=== PATIENT | male | born 1940 | race Caucasian/White ===

== ENCOUNTER 2017-02-01 02:40 | Inpatient (IN) | payer MEDICARE ==
[~2017-02-01] VITALS: Ht 193 cm; Wt 73.9 kg
--- NOTE | ~2017-02-01 | ECH ---
Transthoracic Echocardiography Report (TTE) Demographics Patient Name MERLE GUSTAFSON Date of Study 02/02/2017 Patient Number [id number] Visit Number [id number] Date of 1940 Room Number 423 Accession Number [id number] Gender Male Age 77 year(s) Referring Temo Curry MD Manager Of Administration Magalie Ledesma [facility] Physician Saud Alba Physician Interpreting Ashely Hoover MD Quality Assurance Clerk Physician Supervising Ordering Physician Beau Rizvi MD, MD/P Nurse Stress Manufacturing Sr Engineer Conclusions Summary Technically difficult exam to perform due to body habitus/respirations. Images obtained are adequate. The estimated left ventricular ejection fraction is 60-65%. Bubble study was done, there is no evidence for a PFO or ASD. Mild mitral regurgitation by color Doppler. Trivial tricuspid regurgitation by color Doppler. Trivial pulmonic valve regurgitation by color Doppler. The aortic root appears mildly dilated. The maximum diameter measures 3.88 cm at the sinus of valsalva. Procedure Type of Study TTE procedure:Echo Complete SF. Procedure Date Date: 02/02/2017 Start: 10:48 Technical Quality: Adequate visualization Indications:CVA. Contrast Medium: Bubble Study. Height: 76 inches Weight: 169 pounds BSA: 2.06 m Rhythm: NSR HR: 77 bpm BP: 148/80 mmHg M-Mode/2D Measurements LV Diastolic Dimension: 4.72 cm LV Systolic Dimension: 2.82 cm LV Septum Diastolic: 0.99 cm LV PW Diastolic: 0.97 cm AO Root Dimension: 3.3 cm Cardiac Output: 5.01 l/min LA Dimension: 3.46 cm Cardiac Index: 2.43 l/min*m RV Diastolic Dimension: 3.8 cm LA volume index: 19 ml/m LVOT: 1.94 cm LVOT VTI: 22.03 cm LV Stroke volume: 65.09 ml LV Stroke volume index: 31.6 ml/m Doppler Measurements AV Peak Velocity: 0.98 m/s MV Peak E-Wave: 1.05 m/s AV Peak Gradient: 3.84 mmHg MV Peak A-Wave: 0.75 m/s AV Mean Gradient: 2.08 mmHg MV E/A Ratio: 1.4 LVOT Peak Velocity: 1.15 m/s AV Area (Continuity):3.33 cm TR Velocity:1.91 m/s TR Gradient:14.54 mmHg Estimated PASP: 17.54 mmHg Estimated RAP:3 mmHg Estimated RVSP: 18 mmHg RA Area: 8.01 cm Findings Left Ventricle The left ventricle is normal in size . Diastolic assessment reveals normal relaxation. Right Ventricle Normal right ventricle structure and function. Left Atrium Normal left atrial size. Bubble study was done, there is no evidence for a PFO or ASD. Right Atrium Normal right atrial size. Mitral Valve Normal mitral valve structure and function. Mild mitral regurgitation by color Doppler. Aortic Valve The aortic valve is mildly sclerotic. Tricuspid Valve Trivial tricuspid regurgitation by color Doppler. Pulmonic Valve Trivial pulmonic valve regurgitation by color Doppler. Pericardial Effusion No evidence of pericardial effusion. Miscellaneous The aortic root appears mildly dilated. The maximum diameter measures 3.88 cm at the sinus of valsalva. Pleural Effusion No evidence of pleural effusion. Signature
--- NOTE | ~2017-02-01 | DS ---
ADMIT: 02/01/2017 RM/LOC: 423 [facility] MR#: [id number] [address] [address] MERLE GUSTAFSON [address] [place] [address] Discharge Summary SEX: M AGE: 77 : 1940 ADMISSION DATE: 02/01/2017 DISCHARGE DATE: 02/03/2017 FINAL DIAGNOSES: 1. New onset seizures. 2. CVA (cerebrovascular accident). 3. Diabetes. 4. Hypertension. 5. Left-sided weakness. 6. Hyponatremia. REASON FOR ADMISSION: A 77-year-old gentleman who presented with recent seizures and some confusion. See history and physical for further details. HOSPITAL COURSE: The patient was admitted. Initial workup with head CT was normal. This was followed with a brain MRI and MRA. MRI showed some chronic small vessel disease and a right parietal lobe focal hyperintensity, which is consistent with a small ischemic infarct. Therefore, he was treated as acute stroke. Blood sugars were watched carefully given his hypoglycemic episodes when he came in. He was treated with post stroke protocol. He was continued on his RAMÍREZ inhibitor, started on a statin, and he was put on full-dose aspirin. Because of the seizures, he was put on Keppra 750 mg b.i.d. He never had any more seizures, was feeling well, worked well with therapy, and he was actually gaining some strength and balance, was felt safe to go home from a therapy standpoint; however, did need a little assistance and therefore, he will get set up with outpatient therapy. Discharge medications will be: 1. Aspirin 325 mg daily. 2. Verapamil 180 mg daily. 3. Keppra 750 mg p.o. b.i.d. 4. Trandolapril 2 mg daily. 5. Pravastatin 10 mg daily. 6. Flonase 2 sprays each nostril daily as needed. 7. Metformin 500 mg b.i.d. 8. NovoLog 70/30, 12 units in the morning and 5 units in the evening. Follow up with his regular doctor who I believe Dr. Alba in one to two weeks. He will have PT, OT, and speech therapy, on a regular diet. At his followup, he should get a basic metabolic panel to check on his sodium. Bay Islas MD/ yonathan JOB #: [id number] CC: Roman Plascencia MD, Attending Physician Roman Plascencia MD, Family Physician Saud Alba MD
--- NOTE | ~2017-02-01 | CO ---
ADMIT: 02/01/2017 RM/LOC: 423 [facility] MR#: [id number] [address] [address] MERLE GUSTAFSON [address] [place] [address] Consultation SEX: M AGE: 77 : 1940 DATE OF CONSULTATION: 02/01/2017 ATTENDING PHYSICIAN: Roman Plascencia CONSULTING PHYSICIAN: Dmitri Yanez MD REASON FOR CONSULTATION: Seizures. HISTORY OF PRESENT ILLNESS: The patient is a 77-year-old gentleman with past medical history as below, who was transferred from [place] to [facility] for evaluation of seizures. This started about a week ago. On , he developed generalized tonic-clonic seizure with tongue biting, but no urine or stool incontinence. This was in the setting of hypoglycemia. The episode repeated on Sunday which was 01/28/2017, also in the setting of hypoglycemia, but at this time, he had partial onset with left upper extremity jerking, it was prolonged. After the patient was given Valium, the family noted left-sided weakness which partially improved. Then, the last seizure appeared tonight before admission, but this time without hypoglycemia setting. PAST MEDICAL HISTORY: Significant for diabetes type 2, risk complications since 1977, and high blood pressure. MEDICATIONS: On outpatient basis include: 1. Diphenhydramine. 2. Fluticasone. 3. Metformin. 4. Trandolapril. 5. Verapamil. 6. NovoLog. 7. Orphenadrine. REVIEW OF SYSTEMS: All systems reviewed, negative except as per HPI and below. Neurological: Left-sided weakness and difficulty with coordination. History of seizures with recent onset. Frequent headaches. Visual, bilateral cataracts, needs glasses. Allergies present with hay fever. ENT: Sinus problems. MUSCULOSKELETAL: Back pain. SOCIAL HISTORY: Remote smoking, quit 20 years ago. FAMILY HISTORY: Positive for cancer, but no seizures or stroke. ALLERGIES: NO KNOWN DRUG ALLERGIES. PHYSICAL EXAMINATION: VITAL SIGNS: Temperature 97.5, heart rate 70, respirations 18, blood pressure 139/67, and saturation 99% on room air. GENERAL: The patient appears to be in no acute discomfort. HEAD: Normocephalic. ADMIT: 02/01/2017 RM/LOC: 423 [facility] MR#: [id number] [address] [address] MERLE GUSTAFSON [address] [place] [address] Consultation SEX: M AGE: 77 : 1940 NECK: Supple. CHEST: Normal respiratory rises. CARDIOVASCULAR: Regular rate and rhythm. ABDOMEN: Nondistended. EXTREMITIES: No clubbing or cyanosis. NEUROLOGICAL EXAM: The patient is awake, alert. He is oriented to self and place. He is somewhat oddly behaving, mildly confused. Speech and language are intact. Memory difficult to assess secondary to mild confusion. Cranial nerves; visual quiroz are intact. Pupils are equal and reactive. Extraocular muscles are intact. Facial sensation is normal. Face is symmetric. Hearing to voice intact. Uvula midline. Palatal arch is symmetric. Shoulder shrug symmetric. Tongue midline, fairly moveable. Motor examination reveals mild weakness on left side in left upper extremity. Normal tone. Fine motor movements reduced on left side. Sensory to touch, nonlateralizing. Coordination, left upper extremity [id number], ataxia noted. Gait deferred. Reflexes brisk, symmetric in upper extremities, reduced in knees, and mildly reduced ankle reflexes. Toes are downgoing bilaterally. Gait deferred. ASSESSMENT: 1. Partial epilepsy with secondary generalization. Couple of episodes provoked by hypoglycemia with brittle diabetes. 2. Left-sided ataxia. PLAN: MRI needs to be obtained to rule out focal lesions especially cortical. Keppra was given in the ER 1000 mg. We will repeat 1500 mg load and continue 750 mg twice daily. EEG is planned for today. By the time of dictation of this note, the MRI revealed right frontal cortical ischemic stroke. Stroke pathway was initiated, please see orders present in chart. Aspirin was started and rehab services were consulted. Thank you very much for this interesting consultation. Dmitri Yanez MD/ brandi JOB #: [id number] CC: Roman Plascencia, Attending Physician Roman Plascencia, Family Physician
--- NOTE | 2017-02-04 08:54 | HP ---
ADMIT: 02/01/2017 RM/LOC: 423 [facility] MR#: [id number] [facility] [address] [place], [place] [address] MERLE GUSTAFSON [address] [place] [address] History and Physical SEX: M AGE: 77 : 1940 DATE OF SERVICE: CHIEF COMPLAINT: Recurrent seizures. HISTORY OF PRESENT ILLNESS: This is a 77-year-old gentleman with history of diabetes who had not been doing well over the last several weeks. He had been to the [place] multiple times for episodes concerning for seizure. On one of those episodes, his blood sugar was pretty low and seemed like he was having a hypoglycemic reaction. However, night he had another episode, his blood sugar was normal. He appeared to have a seizure and was postictal en-route to [place]. He had some episodes of his left side shaking and then never really completely cleared. Initially gave some Valium and he is pretty sleepy, so he could not really give a good history. The family was here to have gave some history as well. Prior to this last week or so, he has never had a seizure. They deny any head trauma and aside from blood sugar fluctuations, had been feeling okay and doing fine. PAST MEDICAL HISTORY: Type 2 diabetes, hypertension, some chronic back pain, and allergies. MEDICATIONS: 1. Benadryl. 2. Fluticasone. 3. Metformin. 4. Trandolapril. 5. Verapamil. 6. NovoLog 70/30. 7. Orphenadrine. OTHER REVIEW OF SYSTEMS: He had some left-sided weakness and some coordination problems, recent seizures. He does have some headaches. Otherwise reviewed in its entirety and negative except as above. SOCIAL HISTORY: He is . Remote history of smoking, quit many years ago. FAMILY HISTORY: Cancer. Denies heart disease or strokes. ALLERGIES: NONE. PHYSICAL EXAMINATION: VITAL SIGNS: At the time I see him; temperature 97.5, pulse 70, respirations 18, blood pressure 139/67, and oxygen saturation 99% on room air. GENERAL: This is a well-appearing, 77-year-old gentleman in no apparent distress. He is alert. He is oriented. HEENT: Pupils equal, round, and reactive to light and accommodation. His extraocular muscles are intact. His throat is clear. NECK: Supple. Trachea midline. Thyroid not palpable. He can move left upper extremity. He has a little bit of coordination problem, ADMIT: 02/01/2017 RM/LOC: 423 [facility] MR#: [id number] [address] [address] MERLE GUSTAFSON [address] [place] [address] History and Physical SEX: M AGE: 77 : 1940 a little bit of weakness. Left lower extremity seems okay, but he has been kind of weak with getting around today, so gait not tested. HEART: Regular rate and rhythm. LUNGS: Clear to auscultation bilaterally. ABDOMEN: Soft, without any tenderness. EXTREMITIES: Lower extremities without any edema. NEURO: Cranial nerves are intact. MUSCULOSKELETAL: As above. LABORATORY AND X-RAY DATA: Head CT was negative. CMP shows a bicarb of 16, creatinine 1.3, and sodium 132. Troponin normal. CBC white count 9.0, hemoglobin 12.3, and platelets of 235. Chest x-ray, mild atelectasis. ASSESSMENT: 1. Seizures. 2. Left-sided weakness. 3. Diabetes. 4. Hypertension. PLAN: We will watch his blood sugars carefully, do orthostatic vitals. MRI will be done today to rule out acute CVA. Neurology continue their evaluation, I appreciate it. Bay Islas MD/ brandi JOB #: [id number] CC: Roman Plascencia, Attending Physician Roman Plascencia, Family Physician
[2017-02-04] MEDS ORDERED: FLONASE 0.05% D16 GM NS (15:12)
[2017-02-04] MEDS ORDERED: MAVIK2 MG PO (15:12)
[2017-02-04] MEDS ORDERED: GLUCOPHAGE-DPS500 MG PO (15:12)
[2017-02-04] MEDS ORDERED: NOVOLIN 70100 UNITS/ SQ ×2 (15:13→15:14)
[2017-02-04] MEDS ORDERED: VERAPAMIL ER180 MG PO (15:13)
[2017-02-04] MEDS ORDERED: ASA325 MG PO (15:14)
[2017-02-04] MEDS ORDERED: KEPPRA750 MG PO (15:15)
[2017-02-04] MEDS ORDERED: PRAVACHOL10 MG PO (15:15)
--- NOTE | 2017-02-07 07:41 | ER ---
ADMIT: 02/01/2017 RM/LOC: [facility] MR#: [id number] 2620 [facility] [address] [place] [id number] MERLE GUSTAFSON [address] [place] [address] Emergency Room Report SEX: M AGE: 77 : 1940 DATE: 02/01/2017 TIME: 0240 hours. Please refer to my T-sheet for complete H and P. Briefly, the patient is a 77- year-old who had kind of a complex recent history. He has a known history of diabetes, but he just has not been doing well over the last several weeks. He has had 5 transportations to the [facility] for episodes that they were concerned could be seizure, although one they picked up his blood sugars in the 40s and seemed like a hypoglycemic episode. However, tonight, his blood sugar was normal when the paramedics arrived, they did have what appeared to be a seizure and he was postictal on route to [place]. He had another episode of shaking and is conscious, never really completely cleared, at this point, still postictal. We gave him Valium. He is unable to give a very good history, but the family gives a good detail. He has never had seizures prior to the last week or so. PHYSICAL EXAMINATION: VITAL SIGNS: Blood pressure 149/75, pulse 115, respirations 21, temp 98.1, and sat 95%. GENERAL: He is sluggish, still little confused, but nonfocal. HEENT: Grossly normal. LUNGS: Clear. HEART: Little tacky. ABDOMEN: Soft, nontender. SKIN: No rash. NEURO: He is nonfocal, but still a little bit not clear of his sensorium. EMERGENCY DEPARTMENT COURSE: He had a little bit of what appeared to be a partial seizure while here. At that point, I gave him Ativan 1 mg IV and loaded him on a 1 g of Keppra. CBC was normal except hemoglobin 12.3. Chemistries normal except sodium of 132, CO2 16, glucose 170, magnesium 1.5. Troponin was negative. EKG was sinus rhythm, rate of 101, no changes. Chest x-ray, no acute disease. CT head revealed no acute findings according the radiologist. He was seizure free while here, postictal and sleepy, but vital signs stable. I talked to Roman Plascencia. I then talked to Noah, they will both see him this morning. He will be admitted. ASSESSMENT: 1. Generalized seizure. 2. Prolonged postictal state. PLAN: Admit to the hospital. Gregor Salmon MD/ brandi JOB #: [id number] CC: ADMIT: 02/01/2017 RM/LOC: [facility] MR#: [id number] [address] [place] [id number] MERLE GUSTAFSON [address] [place] [address] Emergency Room Report SEX: M AGE: 77 : 1940 Gregor Salmon MD, Attending Physician
--- NOTE | 2017-02-08 15:59 | EEG ---
ADMIT: 02/01/2017 RM/LOC: 423 [facility] MR#: [id number] [address] [address] MERLE GUSTAFSON [address] [place] [address] Inpatient EEG SEX: M AGE: 77 : 1940 DATE: 02/01/2017 EEG NUMBER: [id number]. HISTORY OF PRESENT ILLNESS: The patient is a 77-year-old gentleman with history of stroke. This is a routine 21 channel digital EEG recording performed on a cooperative patient, who was awake and drowsy in various portions of the study. The study is performed using the 10/20 international electrode placement system. During wakefulness, the background activity is fairly well organized, consisting of regular and symmetrical medium amplitude 9.5 to 10 hertz activity seen posteriorly, which attenuates with eye opening. In addition, moderate amount of low-amplitude fast activity is seen anteriorly. During periods of drowsiness, there is generalized attenuation of the posterior dominant rhythm with appearance of medium amplitude 6 to 7 Hz activity seen bilaterally. There were no focal slowing nor epileptiform discharges in this recording. Hyperventilation was not performed secondary to recent stroke. Photic stimulation performed at 1 to 33 hertz frequency elicited bilateral occipital driving response. IMPRESSION: This is a normal awake and drowsy EEG recording. Note, normal EEG does not rule out the existence of a seizure disorder. Clinical correlation is suggested. COMMENT: Normal cardiac rhythm is noted throughout this recording. Dmitri Yanez MD/ brandi JOB #: [id number] CC: Roman Plascencia MD, Attending Physician Roman Plascencia MD, Family Physician
== END 2017-02-03 13:00 | disposition home or self-care (01) | DRG 65 ==
LOC: ER 02:40 → 4PCU 04:10
PROVIDERS: ADMIT Internal Medicine
DX: I63.9 Cerebral infarction, unspecified (principal); G81.94 Hemiplegia, unspecified affecting left nondominant side; E87.1 Hypo-osmolality and hyponatremia; R56.9 Unspecified convulsions; R27.0 Ataxia, unspecified; G89.29 Other chronic pain; M54.9 Dorsalgia, unspecified; E11.9 Type 2 diabetes mellitus without complications; I10 Essential (primary) hypertension; Z87.891 Personal history of nicotine dependence